=== PATIENT | male | born 1995 | race Caucasian/White ===

== ENCOUNTER 2020-04-06 10:20 | Emergency (ER) | payer MEDICAID ==
[~2020-04-06] VITALS: Ht 165.1 cm; Wt 75.0 kg
[2020-04-06] MEDS ORDERED: ACETAMINOPHEN 325MG TABLET PO STA (10:35)
[2020-04-06] MEDS ORDERED: SODIUM CHLORIDE 0.9% 1,000 ML IV ONE (10:35)
[2020-04-06 11:19] LABS: BASOPHILS % 0.8 % (0.0-2.0); EOSINOPHILS % 1.1 % (0.0-5.0); HEMATOCRIT. 43.7 % (42.0-52.0); HEMOGLOBIN. 14.1 g/dL (14.0-18.0); LYMPHOCYTES % 49.5 % (20.0-50.0); MEAN CORPUSCULAR HEMOGLOBIN 25.2 pg (28.0-32.0); MEAN CORPUSCULAR VOLUME 78.1 fL (80.0-94.0); MEAN PLATELET VOLUME 8.7 fl (7.4-10.4); MONOCYTES % 9.4 % (2.0-8.0); NEUTROPHILS % 39.2 % (40.0-76.0); PLATELET 245 x1000/uL (130-400); RED CELL DISTRIBUTION WIDTH 17.4 % (11.6-14.6)
[2020-04-06] MEDS ORDERED: HYDROXYZINE 10 MG TABLET PO PRN (11:30)
[2020-04-06 11:46] LABS: CHLORIDE 108 mEq/L (98-107)
[2020-04-06 12:35] VITALS: BP 127/62
== END 2020-04-06 12:35 | disposition home or self-care (01) ==
LOC: ER 10:27
DX: S63.601A Unspecified sprain of right thumb, initial encounter (principal); X58.XXXA Exposure to other specified factors, initial encounter; F41.9 Anxiety disorder, unspecified; Y93.89 Activity, other specified; Y92.89 Other specified places as the place of occurrence of the external cause; Y99.8 Other external cause status; F17.290 Nicotine dependence, other tobacco product, uncomplicated; F12.10 Cannabis abuse, uncomplicated
CPT/HCPCS: 29125; 36415; 71045; 73130; 80053; 83880; 84484; 85025; 85379; 93005; 96360; 99285; J7030